=== PATIENT | female | born 2000 | race African-American/Black ===

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

== ENCOUNTER 2021-10-12 09:08 | Emergency (ER) | payer MEDICAID ==
[~2021-10-12] VITALS: Ht 162.6 cm; Wt 89.2 kg
[2021-10-12 09:14] VITALS: BP 134/84
[2021-10-12 10:57] LABS: CLARITY,URINE CLOUDY (Clear); COLOR,URINE YELLOW (Yellow); GLUCOSE, URINE NEGATIVE (Neg); KETONES,URINE TRACE mg/dl (Neg); LEUKOCYTE ESTERASE ,URINE SMALL (Neg); NITRITES, URINE POSITIVE (Neg); OCCULT BLOOD,URINE TRACE-INTACT (Neg); PROTEIN,URINE NEGATIVE (Neg); UROBILINOGEN,URINE 0.2 E.U/dL (0.2-1.0)
[2021-10-12 11:03] LABS: UA COLLECTION TYPE NON-SPECIFIED
[2021-10-12 11:07] LABS: BACTERIA,URINE 4+ /HPF (Neg); MUCUS STRANDS FEW /LPF (Neg); SQUAMOUS EPITHELIAL CELL,UR MANY /LPF (FEW); WBC,URINE 0-4 /HPF (0-4)
--- NOTE | 2021-10-12 11:08 | NUR ---
TONES CHECKED WITH DOPLER GOT [address] DR WRIGHT RECHECKED WITH US AND GOT 140'S
[2021-10-12] MEDS ORDERED: CEPH-585 PO (11:25)
== END 2021-10-12 11:49 | disposition home or self-care (01) ==
LOC: ER 09:09
DX: O23.43 Unspecified infection of urinary tract in pregnancy, third trimester (principal); N39.0 Urinary tract infection, site not specified; O26.891 Other specified pregnancy related conditions, first trimester; R51.9 Headache, unspecified; R42 Dizziness and giddiness; Z72.89 Other problems related to lifestyle; Z79.899 Other long term (current) drug therapy; Z3A.36 36 weeks gestation of pregnancy
CPT/HCPCS: 81001; 99283; 99284